=== PATIENT | female | born 1980 | race Caucasian/White ===

== ENCOUNTER → 2018-10-02 | Day surgery (SDC) | payer OTHER ==
[~2018-10-02] MED LIST: ADDERALL 30 MG30 MG; BACITRACIN 50,000 UNIT VIAL ONE; BUPIVACAINE 0.25% 30ML SDV INJ ONE; CEFAZOLIN SOD 1 GM/D5W 50ML 50 ML IV ONE; DEXAMETHASONE SOD PHOS INJ 4 MG/ML VIAL ONE; FENTANYL CITRATE/PF 100MCG/2 ML INJ ONE; HYDROCODONE/APAP 7.5MG-325MG 1 EA TAB ONE; HYDROMORPHONE 2MG/ML 2 MG/ML ML ONE; LIDOCAINE HCL 2% LOCAL INJ 5 ML SDV VIAL INJ ONE; MIDAZOLAM HCL 2 MG/2 ML VIAL ONE; MORPHINE SULFATE INJ 4 MG/ML INJ ONE; MUPIROCIN 2% OINT 22 GM TUBE ONE; NORCO 7.5-3251 EACH PO; ONDANSETRON HCL INJ 2 MG/ML VIAL ONE; PROPOFOL IV EMULSION 10 MG/ML 20 ML VIAL ONE; SEVOFLURANE INHAL SOLN 250 ML PEN BTL ONE
--- NOTE | 2018-10-02 09:11 | Operative Report ---
DATE OF PROCEDURE: October 02, 2018 PREOPERATIVE DIAGNOSIS: Right radius fracture. POSTOPERATIVE DIAGNOSIS: Right radius fracture. PROCEDURE: Open reduction internal fixation, right radius. POLITICAL ANTHROPOLOGIST: Tanner Houser PA-C The patient was brought to the operating room for induction of anesthesia. Throughout this case, my PA's assistance was necessary for retraction of soft tissue and positioning of the extremity. This allows for efficient and technically successful execution of the operation and is considered medically necessary. INDICATIONS: The patient is a 38-year-old lady who has a displaced and shortened right distal radius fracture. The findings and options have been discussed. We plan on an open reduction with internal fixation. The risks and benefits of the surgery have been explained. She states she understands and wishes to proceed. DESCRIPTION OF PROCEDURE: The patient was brought to the operating room and placed under general anesthetic. Her right upper extremity was prepped and draped in a sterile manner. She received prophylactic antibiotics in the holding area. A preoperative time out was performed. The extremity was exsanguinated and a proximal tourniquet was inflated to 250 mmHg. A volar approach was made to the right distal radius through the floor of the flexor carpi radialis. Care was taken to avoid injury to the palmar cutaneous branch of the median nerve. The fracture site was carefully exposed. A closed reduction was performed. An intraoperative C-arm image intensifier was used to confirm near anatomic reduction. A [employer] volar locking plate was then placed into the distal radius. Again, the C-arm image intensifier was used to confirm appropriate positioning of the hardware. The plate was fixed using a combination of compression and locking screws. Intraoperative x-rays confirmed anatomic reduction and good positioning of the hardware. The wound was irrigated and closed. Subcuticular Vicryl and nylon stitches were used to close the incision. A sterile bandage and a sugar-tong splint were applied. The 10 mL of 0.5% Marcaine without epinephrine was injected around the incision. The sugar-tong splint was applied. The patient was extubated and transported to the recovery room in stable condition. There was no blood loss and all needle and sponge counts were correct. Job#: [id number]
[2018-10-02 09:40] VITALS: BP 147/86
== END | disposition home or self-care (01) ==
LOC: OR 05:05
PROVIDERS: ATTEND Specialist
DX: S52.571A Other intraarticular fracture of lower end of right radius, initial encounter for closed fracture (principal)
CPT/HCPCS: 25608; 76000; 81025; C1713 ×3; J0690; J1100; J1170; J2001; J2250; J2270; J2405; J2704

== ENCOUNTER 2020-12-02 19:39 | Emergency (ER) | payer OTHER ==
[~2020-12-02] VITALS: Ht 160 cm; Wt 111.1 kg
[~2020-12-02 19:39] MED LIST changes: -BACITRACIN 50,000 UNIT VIAL ONE; -BUPIVACAINE 0.25% 30ML SDV INJ ONE; -CEFAZOLIN SOD 1 GM/D5W 50ML 50 ML IV ONE; -DEXAMETHASONE SOD PHOS INJ 4 MG/ML VIAL ONE; -FENTANYL CITRATE/PF 100MCG/2 ML INJ ONE; -HYDROCODONE/APAP 7.5MG-325MG 1 EA TAB ONE; -HYDROMORPHONE 2MG/ML 2 MG/ML ML ONE; -LIDOCAINE HCL 2% LOCAL INJ 5 ML SDV VIAL INJ ONE; -MIDAZOLAM HCL 2 MG/2 ML VIAL ONE; -MORPHINE SULFATE INJ 4 MG/ML INJ ONE; -MUPIROCIN 2% OINT 22 GM TUBE ONE; -ONDANSETRON HCL INJ 2 MG/ML VIAL ONE; -PROPOFOL IV EMULSION 10 MG/ML 20 ML VIAL ONE; -SEVOFLURANE INHAL SOLN 250 ML PEN BTL ONE
== END 2020-12-02 22:40 | disposition home or self-care (01) ==
LOC: FSED 20:01
DX: Z48.01 Encounter for change or removal of surgical wound dressing (principal); F41.9 Anxiety disorder, unspecified; F90.9 Attention-deficit hyperactivity disorder, unspecified type; Z98.84 Bariatric surgery status
CPT/HCPCS: 99282

== ENCOUNTER 2021-09-27 16:19 | Emergency (ER) | payer OTHER ==
[~2021-09-27] VITALS: Ht 160 cm; Wt 79.4 kg
[2021-09-27] MEDS ORDERED: ONDANSETRON HCL INJ 2MG/ML 2ML 2 MG/ML VIAL IV STA (18:08)
[2021-09-27] MEDS ORDERED: FAMOTIDINE 20 MG/2 ML VIAL IV STA (18:08)
[2021-09-27] MEDS ORDERED: SODIUM CHLORIDE 0.9% 1000ML 1,000 ML IV SCH (18:15)
[2021-09-27] MEDS ORDERED: IOPAMIDOL 370 MG/ML 200 ML INFUS..BTL INJ ONE (18:19)
[2021-09-27] MEDS ORDERED: SODIUM CHLORIDE 0.9% 50ML 50 ML ONE (18:19)
[2021-09-27] MEDS ORDERED: SODIUM CHLORIDE 0.9% 1000ML 1,000 ML ONE (18:30)
[2021-09-27] MEDS ORDERED: ONDANSETRON HCL INJ 2MG/ML 2ML 2 MG/ML VIAL ONE (18:30)
[2021-09-27] MEDS ORDERED: FAMOTIDINE 20 MG/2 ML VIAL IV ONE (18:31)
[2021-09-27] MEDS ORDERED: KETOROLAC TROMETHAMINE 30 MG/ML VIAL IV STA (19:39)
[2021-09-27] MEDS ORDERED: DONNATAL/LIDOCAINE/MAALOX 30 ML SUSP PO ONE (19:45)
[2021-09-27] MEDS ORDERED: PANTOPRAZOLE SO40 MG PO (19:45)
[2021-09-27] MEDS ORDERED: FAMOTIDINE40 MG PO (19:46)
[2021-09-27] MEDS ORDERED: ONDANSETRON ODT4 MG PO (19:47)
[2021-09-27] MEDS ORDERED: MAGNESIUM/ALUMINUM/SIMETHICONE 30 ML UDC ONE (19:55)
[2021-09-27] MEDS ORDERED: BELLADONNA ALK/PHENOBARBITAL 5 ML UDC ONE (19:55)
[2021-09-27] MEDS ORDERED: LIDOCAINE VISC 2% SOLN 15 ML UDC ONE (19:56)
[2021-09-27] MEDS ORDERED: KETOROLAC TROMETHAMINE 30 MG/ML VIAL ONE (19:57)
== END 2021-09-27 21:00 | disposition home or self-care (01) ==
LOC: FSED 17:30
DX: R10.13 Epigastric pain (principal); R11.2 Nausea with vomiting, unspecified; F41.9 Anxiety disorder, unspecified; F90.9 Attention-deficit hyperactivity disorder, unspecified type; Z98.84 Bariatric surgery status
CPT/HCPCS: 74177; 80048; 80076; 81003; 85025; 99284; J1885; J2405; J7030; Q9967

== ENCOUNTER 2021-10-05 22:55 | Inpatient (IN) | payer OTHER ==
[~2021-10-05] VITALS: Ht 160 cm; Wt 86.6 kg
[~2021-10-05 22:55] MED LIST changes: +FAMOTIDINE40 MG PO; +ONDANSETRON ODT4 MG PO; +PANTOPRAZOLE SO40 MG PO
[2021-10-05] MEDS ORDERED: SODIUM CHLORIDE 0.9% 1000ML 1,000 ML IV ONE (23:15)
[2021-10-05] MEDS ORDERED: PROMETHAZINE HCL (IM) 25 MG/ML VIAL IM ONE (23:15)
[2021-10-05] MEDS ORDERED: ONDANSETRON HCL INJ 2MG/ML 2ML 2 MG/ML VIAL IV STA (23:18)
[2021-10-05] MEDS ORDERED: ONDANSETRON HCL INJ 2MG/ML 2ML 2 MG/ML VIAL ONE (23:18)
[2021-10-05] MEDS ORDERED: SODIUM CHLORIDE 0.9% 1000ML 1,000 ML ONE (23:18)
[2021-10-05 23:24] LABS: BASOPHILS # (AUTO) 0.1 (0.0-0.1); BASOPHILS % 0.4 % (0.0-1.0); HEMATOCRIT 50.2 % (34.2-44.1); HEMOGLOBIN 16.7 g/dL (12.0-16.0); LYMPHOCYTES # (AUTO) 3.2 (1.0-3.2); LYMPHOCYTES % 22.5 % (18.0-39.1); MEAN CORPUSCULAR HGB CONC 33.3 g/dL (31-35); MEAN CORPUSCULAR VOLUME 90.3 fL (81-99); MONOCYTES # (AUTO) 0.6 (0.2-0.8); NEUTROPHILS # (AUTO) 10.4 (2.1-6.9); NEUTROPHILS % 72.7 % (38.7-80.0); PLATELET COUNT 359 x10e3/uL (140-360); RED BLOOD COUNT 5.56 x10e6/uL (3.6-5.1); RED CELL DISTRIBUTION WIDTH 13.1 % (11.7-14.4)
[2021-10-05 23:42] LABS: AMYLASE 27 U/L (25-125); LIPASE 7 U/L (8-78)
[2021-10-05 23:45] LABS: ALBUMIN 4.2 g/dL (3.5-5.0); ALBUMIN/GLOBULIN RATIO 1.2 (0.8-2.0); ANION GAP 19.9 mmol/L (8-16); CALCIUM 9.6 mg/dL (8.4-10.2); CREATININE, SERUM 0.97 mg/dL (0.57-1.11); POTASSIUM 3.9 mmol/L (3.5-5.1)
[2021-10-06] VITALS (8 sets, daily range): BP systolic 148–168; BP diastolic 84–89
[2021-10-06 00:46] LABS: CLARITY,URINE SL CLOUDY (CLEAR); COLOR,URINE YELLOW (YELLOW); KETONES,URINE >=160 (NEGATIVE); LEUKOCYTE ESTERASE ,URINE TRACE (NEGATIVE); NITRITE,URINE NEGATIVE (NEGATIVE); PROTEIN,URINE DIPSTICK NEGATIVE (NEGATIVE); URINE UROBILINOGEN 1 mg/dL (0.2 - 1)
[2021-10-06 00:49] LABS: AMPHETAMINES SCREEN,URINE NEGATIVE (NEGATIVE); BENZODIAZEPINES SCREEN,URINE POSITIVE (NEGATIVE); PHENCYCLIDINE SCREEN,URINE NEGATIVE (NEGATIVE)
[2021-10-06 00:54] LABS: AMORPHOUS SEDIMENT,URINE MODERATE (FEW); BACTERIA,URINE FEW /HPF; EPITHELIAL CELLS,URINE MODERATE /LPF; RBC,URINE 0-5 /HPF (0-5)
[2021-10-06] MEDS ORDERED: SODIUM CHLORIDE 0.9% 1000ML 1,000 ML IV ONE (01:00)
[2021-10-06] MEDS ORDERED: ONDANSETRON HCL INJ 2MG/ML 2ML 2 MG/ML VIAL IV PRN ×2 (01:30)
[2021-10-06] MEDS ORDERED: METOCLOPRAMIDE HCL 10 MG/2ML VIAL IV ONE (02:30)
[2021-10-06] MEDS: SODIUM CHLORIDE 0.9% 1000ML 1,000 ML IV SCH ×3 (02:57→18:25)
[2021-10-06] MEDS: Pantoprazole IV 40 MG in SODIUM CHLORIDE 0.9% 50ML 50 ML IV SCH ×4 (02:57→18:24)
[2021-10-06] MEDS ORDERED: METOCLOPRAMIDE HCL 10 MG/2ML VIAL IV SCH (06:00)
[2021-10-06] MEDS: METOCLOPRAMIDE HCL 10 MG/2ML VIAL IV SCH ×3 (08:58→18:25)
[2021-10-06] MEDS ORDERED: ONDANSETRON HCL INJ 2MG/ML 2ML 2 MG/ML VIAL ONE ×2 (11:27→17:36)
[2021-10-06] MEDS ORDERED: MIDAZOLAM HCL 2 MG/2 ML VIAL ONE (12:43)
[2021-10-06] MEDS ORDERED: FENTANYL CITRATE/PF 100MCG/2 ML INJ ONE (12:43)
[2021-10-06] MEDS: PROMETHAZINE 25MG/ NS 50ML (IV) IV PRN (15:00)
[2021-10-06] MEDS ORDERED: POVIDONE IODINE 0.05% 0.05 % ML PO ONE (17:36)
[2021-10-06] MEDS ORDERED: LIDOCAINE HCL 2% LOCAL INJ 5 ML SDV VIAL INJ ONE (17:36)
[2021-10-06] MEDS ORDERED: PROPOFOL IV EMULSION 10 MG/ML 20 ML VIAL ONE (17:36)
[2021-10-06] MEDS: CEFTRIAXONE 1 GM in SODIUM CHLORIDE 0.9% 50ML 50 ML IV SCH (18:25)
[2021-10-07] VITALS (7 sets, daily range): BP systolic 144–170; BP diastolic 73–93
[2021-10-07] MEDS ORDERED: MECLIZINE HCL 12.5 MG TAB PO ONE (00:15)
[2021-10-07] MEDS: Pantoprazole IV 40 MG in SODIUM CHLORIDE 0.9% 50ML 50 ML IV SCH ×6 (00:53→23:30)
[2021-10-07] MEDS: METOCLOPRAMIDE HCL 10 MG/2ML VIAL IV SCH ×5 (00:55→23:36)
[2021-10-07 05:00] LABS: BASOPHILS % 0.2 % (0.0-1.0); HEMATOCRIT 39.8 % (34.2-44.1); LYMPHOCYTES # (AUTO) 1.9 (1.0-3.2); LYMPHOCYTES % 15.2 % (18.0-39.1); MEAN CORPUSCULAR HEMOGLOBIN 30.1 pg (28-32); MEAN CORPUSCULAR HGB CONC 32.7 g/dL (31-35); MEAN CORPUSCULAR VOLUME 92.1 fL (81-99); MONOCYTES # (AUTO) 0.6 (0.2-0.8); MONOCYTES % 4.7 % (4.4-11.3); NEUTROPHILS # (AUTO) 9.7 (2.1-6.9); NEUTROPHILS % 79.5 % (38.7-80.0); PLATELET COUNT 262 x10e3/uL (140-360); RED BLOOD COUNT 4.32 x10e6/uL (3.6-5.1); RED CELL DISTRIBUTION WIDTH 13.2 % (11.7-14.4)
[2021-10-07] MEDS: SODIUM CHLORIDE 0.9% 1000ML 1,000 ML IV SCH ×4 (05:24→23:37)
[2021-10-07 06:03] LABS: ALANINE AMINOTRANSFERASE 8 IU/L (0-55); ALBUMIN 3.4 g/dL (3.5-5.0); ALBUMIN/GLOBULIN RATIO 1.1 (0.8-2.0); ALKALINE PHOSPHATASE 61 IU/L (40-150); ANION GAP 15.6 mmol/L (8-16); BLOOD UREA NITROGEN < 5 mg/dL (7-26); CALCIUM 8.2 mg/dL (8.4-10.2); CARBON DIOXIDE 18 mmol/L (22-29); CHLORIDE 108 mmol/L (98-107); CREATININE, SERUM 0.68 mg/dL (0.57-1.11); EST GLOMERULAR FILTRATION RATE 94 ML/MIN (60-); GLUCOSE 100 mg/dL (74-118); POTASSIUM 3.6 mmol/L (3.5-5.1); SODIUM 138 mmol/L (136-145)
[2021-10-07 06:04] LABS: BUN/CREATININE RATIO 7 (6-25)
[2021-10-07] MEDS: CEFTRIAXONE 1 GM in SODIUM CHLORIDE 0.9% 50ML 50 ML IV SCH (09:00)
[2021-10-07] MEDS: MECLIZINE HCL 12.5 MG TAB PO SCH ×3 (09:00→21:00)
[2021-10-07] MEDS: HYDRALAZINE HCL 20 MG/ML VIAL IV PRN (19:09)
[2021-10-08] VITALS (8 sets, daily range): BP systolic 142–176; BP diastolic 79–103
[2021-10-08] MEDS: Pantoprazole IV 40 MG in SODIUM CHLORIDE 0.9% 50ML 50 ML IV SCH ×4 (04:30→19:30)
[2021-10-08] MEDS: METOCLOPRAMIDE HCL 10 MG/2ML VIAL IV SCH ×3 (05:54→17:52)
[2021-10-08 06:05] LABS: BASOPHILS % 0.2 % (0.0-1.0); HEMATOCRIT 42.5 % (34.2-44.1); LYMPHOCYTES # (AUTO) 2.3 (1.0-3.2); LYMPHOCYTES % 26.5 % (18.0-39.1); MEAN CORPUSCULAR HEMOGLOBIN 30.2 pg (28-32); MEAN CORPUSCULAR HGB CONC 32.9 g/dL (31-35); MEAN CORPUSCULAR VOLUME 91.6 fL (81-99); MONOCYTES # (AUTO) 0.6 (0.2-0.8); MONOCYTES % 7.1 % (4.4-11.3); NEUTROPHILS # (AUTO) 5.8 (2.1-6.9); NEUTROPHILS % 65.9 % (38.7-80.0); PLATELET COUNT 269 x10e3/uL (140-360); RED BLOOD COUNT 4.64 x10e6/uL (3.6-5.1); RED CELL DISTRIBUTION WIDTH 13.1 % (11.7-14.4)
[2021-10-08 06:34] LABS: ALANINE AMINOTRANSFERASE 7 IU/L (0-55); ALBUMIN 3.7 g/dL (3.5-5.0); ALBUMIN/GLOBULIN RATIO 1.2 (0.8-2.0); ALKALINE PHOSPHATASE 62 IU/L (40-150); ANION GAP 17.1 mmol/L (8-16); BLOOD UREA NITROGEN < 5 mg/dL (7-26); CALCIUM 8.6 mg/dL (8.4-10.2); CARBON DIOXIDE 22 mmol/L (22-29); CHLORIDE 102 mmol/L (98-107); CREATININE, SERUM 0.68 mg/dL (0.57-1.11); EST GLOMERULAR FILTRATION RATE 94 ML/MIN (60-); GLUCOSE 88 mg/dL (74-118); POTASSIUM 3.1 mmol/L (3.5-5.1); SODIUM 138 mmol/L (136-145)
[2021-10-08 06:35] LABS: BUN/CREATININE RATIO 7 (6-25)
[2021-10-08] MEDS: MECLIZINE HCL 12.5 MG TAB PO SCH ×3 (09:00→20:30)
[2021-10-08] MEDS: LISINOPRIL 10 MG TAB PO SCH (09:00)
[2021-10-08] MEDS: CEFTRIAXONE 1 GM in SODIUM CHLORIDE 0.9% 50ML 50 ML IV SCH (09:00)
[2021-10-08] MEDS: SODIUM CHLORIDE 0.9% 1000ML 1,000 ML IV SCH ×2 (09:30→16:51)
[2021-10-08] MEDS ORDERED: POTASSIUM CHLORIDE 10MEQ/100ML 300 ML IV ONE (11:30)
[2021-10-08] MEDS: HYDRALAZINE HCL 20 MG/ML VIAL IV PRN ×2 (11:48→22:00)
[2021-10-08] MEDS ORDERED: POTASSIUM CHLORIDE 20 MEQ TAB CR PO ONE (15:00)
[2021-10-08] MEDS ORDERED: ALPRAZOLAM 1 MG TAB PO PRN (17:00)
[2021-10-08] MEDS: ACETAMINOPHEN 325 MG TAB PO PRN (17:52)
[2021-10-08] MEDS: PROMETHAZINE 25MG/ NS 50ML (IV) IV PRN (20:45)
[2021-10-08] MEDS: ALPRAZOLAM 1 MG TAB PO PRN (20:54)
[2021-10-09] VITALS (8 sets, daily range): BP systolic 144–180; BP diastolic 91–105
[2021-10-09] MEDS: Pantoprazole IV 40 MG in SODIUM CHLORIDE 0.9% 50ML 50 ML IV SCH ×5 (00:30→21:32)
[2021-10-09] MEDS: SODIUM CHLORIDE 0.9% 1000ML 1,000 ML IV SCH ×2 (03:34→17:55)
[2021-10-09] MEDS: METOCLOPRAMIDE HCL 10 MG/2ML VIAL IV SCH ×4 (06:00→17:55)
[2021-10-09 06:20] LABS: BASOPHILS % 0.4 % (0.0-1.0); EOSINOPHILS % 0.2 % (0.0-6.0); HEMOGLOBIN 14.5 g/dL (12.0-16.0); LYMPHOCYTES # (AUTO) 2.3 (1.0-3.2); LYMPHOCYTES % 22.8 % (18.0-39.1); MEAN CORPUSCULAR HEMOGLOBIN 30.3 pg (28-32); MEAN CORPUSCULAR HGB CONC 34.5 g/dL (31-35); MEAN CORPUSCULAR VOLUME 87.9 fL (81-99); MONOCYTES # (AUTO) 0.7 (0.2-0.8); MONOCYTES % 6.5 % (4.4-11.3); NEUTROPHILS # (AUTO) 7.2 (2.1-6.9); NEUTROPHILS % 69.7 % (38.7-80.0); PLATELET COUNT 292 x10e3/uL (140-360); RED BLOOD COUNT 4.78 x10e6/uL (3.6-5.1); RED CELL DISTRIBUTION WIDTH 12.8 % (11.7-14.4)
[2021-10-09] MEDS: HYDRALAZINE HCL 20 MG/ML VIAL IV PRN (06:32)
[2021-10-09 06:42] LABS: INR 0.97; PARTIAL THROMBOPLASTIN TIME 30.9 seconds (23.8-35.5); PROTHROMBIN TIME 13.6 seconds (11.9-14.5)
[2021-10-09 06:43] LABS: ANION GAP 17.9 mmol/L (8-16); BLOOD UREA NITROGEN < 5 mg/dL (7-26); CALCIUM 8.9 mg/dL (8.4-10.2); CARBON DIOXIDE 21 mmol/L (22-29); CHLORIDE 102 mmol/L (98-107); CREATININE, SERUM 0.65 mg/dL (0.57-1.11); EST GLOMERULAR FILTRATION RATE 99 ML/MIN (60-); GLUCOSE 94 mg/dL (74-118); MAGNESIUM 1.7 MG/DL (1.3-2.1); SODIUM 138 mmol/L (136-145)
[2021-10-09 06:46] LABS: BUN/CREATININE RATIO 8 (6-25)
[2021-10-09 06:47] LABS: POTASSIUM 2.9 mmol/L (3.5-5.1)
[2021-10-09] MEDS ORDERED: POTASSIUM CHLORIDE 20 MEQ TAB CR PO ONE ×2 (07:30→09:00)
[2021-10-09] MEDS ORDERED: MAGNESIUM SULF 1GRAM/DEXTROSE 100 ML IV ONE (07:30)
[2021-10-09] MEDS: MECLIZINE HCL 12.5 MG TAB PO SCH (08:00)
[2021-10-09] MEDS: LISINOPRIL 10 MG TAB PO SCH (08:00)
[2021-10-09] MEDS: ACETAMINOPHEN 325 MG TAB PO PRN (08:20)
[2021-10-09] MEDS: PROMETHAZINE 25MG/ NS 50ML (IV) IV PRN (08:20)
[2021-10-09] MEDS: ADDERALL 30MG TAB PO SCH ×2 (08:23→15:50)
[2021-10-09] MEDS: CEFTRIAXONE 1 GM in SODIUM CHLORIDE 0.9% 50ML 50 ML IV SCH (09:15)
[2021-10-09] MEDS ORDERED: KETOROLAC TROMETHAMINE 30 MG/ML VIAL IV ONE (11:00)
[2021-10-09] MEDS ORDERED: ONDANSETRON HCL INJ 2MG/ML 2ML 2 MG/ML VIAL ONE (12:26)
[2021-10-09] MEDS ORDERED: NEOSTIGMINE 1 MG/ML 10ML VIAL ONE (12:26)
[2021-10-09] MEDS ORDERED: GLYCOPYRROLATE INJ 0.2 MG/ML VIAL ONE (12:26)
[2021-10-09] MEDS ORDERED: SEVOFLURANE INHAL SOLN 250 ML PEN BTL ONE (12:26)
[2021-10-09] MEDS ORDERED: DEXAMETHASONE SOD PHOS INJ 4 MG/ML SDV ONE (12:26)
[2021-10-09] MEDS ORDERED: POVIDONE IODINE 0.05% 0.05 % ML PO ONE (12:26)
[2021-10-09] MEDS ORDERED: PROPOFOL IV EMULSION 10 MG/ML 20 ML VIAL ONE (12:26)
[2021-10-09] MEDS ORDERED: EPHEDRINE SULFATE INJ 50 MG/ML VIAL ONE (12:26)
[2021-10-09] MEDS ORDERED: LIDOCAINE HCL 2% LOCAL INJ 5 ML SDV VIAL INJ ONE (12:26)
[2021-10-09] MEDS ORDERED: ROCURONIUM BROMIDE 10 MG/ML 5ML VIAL IV ONE (12:26)
[2021-10-09] MEDS ORDERED: MIDAZOLAM HCL 2 MG/2 ML VIAL ONE (13:07)
[2021-10-09] MEDS ORDERED: Morphine 10mg syringe 10 MG/ML INJ ONE (13:07)
[2021-10-09] MEDS ORDERED: FENTANYL CITRATE/PF 100MCG/2 ML INJ ONE (13:07)
[2021-10-09] MEDS ORDERED: BUPIVACAINE 0.25% 30ML SDV ONE (14:36)
[2021-10-09] MEDS ORDERED: LISINOPRIL-HCT1 EAC2 PO (14:56)
[2021-10-09] MEDS ORDERED: HYDROMORPHONE 1MG/1ML INJ IV PRN (16:45)
[2021-10-09] MEDS ORDERED: HYDROCODONE/APAP 7.5MG-325MG 1 EA TAB PO PRN (16:45)
[2021-10-09] MEDS ORDERED: ACETAMINOPHEN 1000 MG/100 ML IV PRN (18:00)
[2021-10-09 18:50] LABS: ANION GAP 15.9 mmol/L (8-16); BLOOD UREA NITROGEN < 5 mg/dL (7-26); CALCIUM 8.9 mg/dL (8.4-10.2); CARBON DIOXIDE 20 mmol/L (22-29); CHLORIDE 104 mmol/L (98-107); CREATININE, SERUM 0.73 mg/dL (0.57-1.11); EST GLOMERULAR FILTRATION RATE 87 ML/MIN (60-); GLUCOSE 143 mg/dL (74-118); POTASSIUM 3.9 mmol/L (3.5-5.1); SODIUM 136 mmol/L (136-145)
[2021-10-09 18:54] LABS: BUN/CREATININE RATIO 7 (6-25)
[2021-10-10] VITALS (7 sets, daily range): BP systolic 124–157; BP diastolic 80–97
[2021-10-10] MEDS: METOCLOPRAMIDE HCL 10 MG/2ML VIAL IV SCH ×4 (00:30→17:20)
[2021-10-10] MEDS: Pantoprazole IV 40 MG in SODIUM CHLORIDE 0.9% 50ML 50 ML IV SCH ×4 (02:25→17:19)
[2021-10-10] MEDS: SODIUM CHLORIDE 0.9% 1000ML 1,000 ML IV SCH ×2 (03:08→13:12)
[2021-10-10] MEDS: ALPRAZOLAM 1 MG TAB PO PRN (04:08)
[2021-10-10 07:00] LABS: BASOPHILS % 0.2 % (0.0-1.0); EOSINOPHILS % 0.1 % (0.0-6.0); HEMATOCRIT 37.6 % (34.2-44.1); HEMOGLOBIN 12.6 g/dL (12.0-16.0); LYMPHOCYTES # (AUTO) 1.5 (1.0-3.2); LYMPHOCYTES % 18.1 % (18.0-39.1); MEAN CORPUSCULAR HEMOGLOBIN 29.9 pg (28-32); MEAN CORPUSCULAR HGB CONC 33.5 g/dL (31-35); MEAN CORPUSCULAR VOLUME 89.3 fL (81-99); MONOCYTES # (AUTO) 0.6 (0.2-0.8); MONOCYTES % 7.6 % (4.4-11.3); NEUTROPHILS # (AUTO) 6.2 (2.1-6.9); NEUTROPHILS % 73.5 % (38.7-80.0); PLATELET COUNT 275 x10e3/uL (140-360); RED BLOOD COUNT 4.21 x10e6/uL (3.6-5.1); RED CELL DISTRIBUTION WIDTH 13.2 % (11.7-14.4)
[2021-10-10 07:29] LABS: ALBUMIN 3.3 g/dL (3.5-5.0); ALBUMIN/GLOBULIN RATIO 1.2 (0.8-2.0); ANION GAP 11.4 mmol/L (8-16); CALCIUM 8.4 mg/dL (8.4-10.2); CREATININE, SERUM 0.63 mg/dL (0.57-1.11); MAGNESIUM 1.8 MG/DL (1.3-2.1); POTASSIUM 3.4 mmol/L (3.5-5.1)
[2021-10-10] MEDS ORDERED: HYDROCHLOROTHIAZIDE 25 MG TAB PO SCH (09:00)
[2021-10-10] MEDS: ADDERALL 30MG TAB PO SCH ×2 (09:00→17:20)
[2021-10-10] MEDS: CEFTRIAXONE 1 GM in SODIUM CHLORIDE 0.9% 50ML 50 ML IV SCH (09:21)
[2021-10-10] MEDS: LISINOPRIL 10 MG TAB PO SCH (09:21)
[2021-10-10] MEDS ORDERED: POTASSIUM CHLORIDE 20 MEQ TAB CR PO NR (09:32)
[2021-10-10] MEDS ORDERED: MAGNESIUM OXIDE 400 MG TAB PO NR (09:45)
[2021-10-10] MEDS: ACETAMINOPHEN 325 MG TAB PO PRN (18:47)
== END 2021-10-10 20:14 | disposition home or self-care (01) | DRG 418 ==
LOC: ER 23:12 → ERHOLD 10-06 01:34 → MED/SURG2 10-06 02:53 → OBSVTOIN 10-07 14:52
PROVIDERS: ADMIT Internal Medicine; ATTEND Internal Medicine
PROC: 0DB78ZX Excision of Stomach, Pylorus, Via Natural or Artificial Opening Endoscopic, Diagnostic (ICD-10-PCS; 2021-10-06)
PROC: 0DB68ZX Excision of Stomach, Via Natural or Artificial Opening Endoscopic, Diagnostic (ICD-10-PCS; 2021-10-06)
PROC: 0DB38ZX Excision of Lower Esophagus, Via Natural or Artificial Opening Endoscopic, Diagnostic (ICD-10-PCS; 2021-10-06)
PROC: 0DB98ZX Excision of Duodenum, Via Natural or Artificial Opening Endoscopic, Diagnostic (ICD-10-PCS; principal; 2021-10-06 15:30)
PROC: 0FT44ZZ Resection of Gallbladder, Percutaneous Endoscopic Approach (ICD-10-PCS; 2021-10-09)
DX: K80.10 Calculus of gallbladder with chronic cholecystitis without obstruction (principal); N39.0 Urinary tract infection, site not specified; K82.8 Other specified diseases of gallbladder; E86.0 Dehydration; F41.9 Anxiety disorder, unspecified; Z98.84 Bariatric surgery status; F90.9 Attention-deficit hyperactivity disorder, unspecified type; R73.03 Prediabetes; K29.70 Gastritis, unspecified, without bleeding; K44.9 Diaphragmatic hernia without obstruction or gangrene; H81.10 Benign paroxysmal vertigo, unspecified ear; B96.20 Unspecified Escherichia coli [E. coli] as the cause of diseases classified elsewhere; K31.89 Other diseases of stomach and duodenum; Z20.822 Contact with and (suspected) exposure to COVID-19
CPT/HCPCS: 36415; 43239; 74018; 74246; 78227; 80048; 80053; 80307; 81001; 82150; 83036; 83690; 83735; 84702; 85025; 85610; 85730; 87086; 87186; 88304; 88305; 88312; 94799; 96361; 99284; A9537; C1766; G0378; J0360; J0696; J1100; J1885; J2001; J2250; J2270; J2405; J2550; J2710; J2765; J3010; J3475; J3480; J7030; U0002

== ENCOUNTER 2022-04-19 03:06 | Emergency (ER) | payer OTHER ==
[~2022-04-19] VITALS: Ht 160 cm; Wt 79.8 kg
[~2022-04-19 03:06] MED LIST changes: +LISINOPRIL-HCT1 EAC2 PO
[2022-04-19] MEDS ORDERED: SODIUM CHLORIDE 0.9% 1000ML 1,000 ML IV STA (03:19)
[2022-04-19] MEDS ORDERED: ONDANSETRON HCL INJ 2MG/ML 2ML 2 MG/ML VIAL IV ONE (03:30)
[2022-04-19] MEDS ORDERED: KETOROLAC TROMETHAMINE 30 MG/ML VIAL IV ONE (03:30)
[2022-04-19] MEDS ORDERED: FAMOTIDINE 20 MG/2 ML VIAL IV ONE ×2 (03:30→03:58)
[2022-04-19] MEDS ORDERED: HYDROCODONE/APAP 5MG-325MG TAB PO ONE (03:30)
[2022-04-19] MEDS ORDERED: KETOROLAC TROMETHAMINE 30 MG/ML VIAL ONE (03:58)
[2022-04-19] MEDS ORDERED: ONDANSETRON HCL INJ 2MG/ML 2ML 2 MG/ML VIAL ONE (03:58)
[2022-04-19] MEDS ORDERED: HYDROCODONE/APAP 5MG-325MG TAB ONE (03:58)
[2022-04-19] MEDS ORDERED: SODIUM CHLORIDE 0.9% 1000ML 1,000 ML ONE (03:58)
[2022-04-19] MEDS ORDERED: ONDANSETRON ODT4 MG PO ×2 (04:19→04:41)
[2022-04-19] MEDS ORDERED: HYDROCODON-ACE1 EA12 PO ×2 (04:19→04:41)
[2022-04-19] MEDS ORDERED: IBUPROFEN200 MG PO ×2 (04:19→04:41)
[2022-04-19] MEDS ORDERED: FLOMAX0.4 MG PO ×2 (04:19→04:41)
[2022-04-19] MEDS ORDERED: COLACE100 M1 PO ×2 (04:19→04:41)
[2022-04-19 04:50] VITALS: BP 139/89
== END 2022-04-19 04:50 | disposition home or self-care (01) ==
LOC: FSED 03:19
DX: M54.50 Low back pain, unspecified (principal); N13.2 Hydronephrosis with renal and ureteral calculous obstruction; I10 Essential (primary) hypertension; F90.9 Attention-deficit hyperactivity disorder, unspecified type; Z98.84 Bariatric surgery status
CPT/HCPCS: 74176; 80053; 81003; 81025; 85025; 96374; 96375; 96376; 99284; J1885; J2405; J7030